=== PATIENT | male | born 1960 ===

== ENCOUNTER 2024-06-13 08:39 | Outpatient (CLI) | payer OTHER | END 2024-06-13 08:49 | disposition home or self-care (01) | LOC: TOM 08:39 | PROVIDERS: ATTEND Internal Medicine | DX: D64.9 Anemia, unspecified (principal); Z85.01 Personal history of malignant neoplasm of esophagus; D50.9 Iron deficiency anemia, unspecified; K56.51 Intestinal adhesions [bands], with partial obstruction; K43.9 Ventral hernia without obstruction or gangrene ==